=== PATIENT | female | born 1960 | race Caucasian/White ===

== ENCOUNTER → 2017-12-26 | Outpatient (CLI) | payer BC | END | disposition home or self-care (01) | LOC: KCIC MRI 14:34 | DX: M48.061 Spinal stenosis, lumbar region without neurogenic claudication (principal); M47.896 Other spondylosis, lumbar region | CPT/HCPCS: 72148 ==

== ENCOUNTER → 2018-02-03 | Outpatient (CLI) | payer BC ==
[2018-02-04 22:20] LABS: MRSA BY PCR Negative (Negative)
== END | disposition home or self-care (01) ==
LOC: SURGPAT 13:33
DX: Z01.818 Encounter for other preprocedural examination (principal); I10 Essential (primary) hypertension; R94.31 Abnormal electrocardiogram [ECG] [EKG]
CPT/HCPCS: 36415; 87641; 93005

== ENCOUNTER 2018-02-07 08:50 | Day surgery (SDC) | payer BC ==
[~2018-02-07 08:50] MED LIST: LIDOCAINE 1% PF 2 ML VIAL. ID; ONDANSETRON PF 4 MG/2 ML VIAL. IV; TRANEXAMIC ACID 1,000 MG in IV NS 50ML -- 1ST BAG INJ; TRANEXAMIC ACID 1,000 MG in IV NS 50ML -- 2ND BAG INJ; ceFAZolin 2GM PREMIX 2 GM/50 ML BAG IV; fentaNYL PF VIAL 100 MCG/2 ML VIAL IV
[2018-02-07] MEDS: IV RINGERS,LACTATED 1000ML 1,000 ML IV (09:20)
[2018-02-07] MEDS ORDERED: PROPOFOL 20 ML IV (10:16)
[2018-02-07] MEDS ORDERED: ONDANSETRON PF 4 MG/2 ML VIAL. (10:17)
[2018-02-07] MEDS ORDERED: PHENYLEPHRINE in 0.9% NACL PF 1 MG/10 ML SYRINGE. IV (10:17)
[2018-02-07] MEDS ORDERED: LIDOCAINE 2% PF Vial for OR 5 ML VIAL. (10:17)
[2018-02-07] MEDS ORDERED: DEXAMETHASONE SOD PHOS 20 MG/5 ML VIAL. (10:17)
[2018-02-07] MEDS ORDERED: REMIFENTANIL 2 MG VIAL. IV (10:18)
[2018-02-07] MEDS ORDERED: PROPOFOL 50 ML IV (10:18)
[2018-02-07] MEDS ORDERED: MIDAZOLAM HCL/PF 2 MG/2 ML VIAL. (10:18)
[2018-02-07] MEDS ORDERED: ROCURONIUM 50 MG/5 ML VIAL. (10:18)
[2018-02-07] MEDS ORDERED: fentaNYL PF VIAL 100 MCG/2 ML VIAL (10:18)
[2018-02-07] MEDS ORDERED: GLYCOPYRROLATE 1 MG/5 ML VIAL. (11:36)
[2018-02-07] MEDS ORDERED: DESFLURANE > 120 MINUTES IH (11:36)
[2018-02-07] MEDS ORDERED: NEOSTIGMINE METHYLSULFATE 5 MG/5 ML SYRINGE. (11:37)
[2018-02-07] MEDS: BUPIVAC MPF-EPI 0.5%-1:200000 30 ML VIAL. INJ (11:42)
[2018-02-07] MEDS: THROMBIN TOPICAL 20,000 UNIT SPRAY.SYRN KIT TP (11:42)
[2018-02-07] MEDS: GELATIN SPONGE SIZE 100. (11:42)
[2018-02-07] MEDS: KETOROLAC 60 MG/2 ML INJ FOR OR. (11:42)
[2018-02-07] MEDS: BACITRACIN 50,000 UNIT in IV NORMAL SALINE 1000ML BAG 1,000 ML IRR (11:42)
[2018-02-07] MEDS: fentaNYL PF VIAL 100 MCG/2 ML VIAL IV ×2 (13:15→13:22)
[2018-02-07] MEDS: PROCHLORPERAZINE 10 MG/2 ML VIAL. IV (13:15)
[2018-02-07] MEDS ORDERED: HYDROcodone/APAP 7.5/325MG 1 TAB TABLET PO (13:45)
[2018-02-07] MEDS: MORPHINE SULFATE 2 MG/ML DISP.SYRIN. IV (14:05)
[2018-02-07] MEDS: METHOCARBAMOL 750 MG TABLET PO (14:22)
[2018-02-07] MEDS: HYDROcodone/APAP 7.5/325MG 1 TAB TABLET PO (14:22)
== END 2018-02-07 15:30 | disposition home or self-care (01) ==
LOC: SURG 08:50
DX: M51.16 Intervertebral disc disorders with radiculopathy, lumbar region (principal); J45.909 Unspecified asthma, uncomplicated; I10 Essential (primary) hypertension; G43.909 Migraine, unspecified, not intractable, without status migrainosus; Z90.710 Acquired absence of both cervix and uterus; Z98.890 Other specified postprocedural states; E78.00 Pure hypercholesterolemia, unspecified; M19.90 Unspecified osteoarthritis, unspecified site; F32.9 Major depressive disorder, single episode, unspecified; Z88.2 Allergy status to sulfonamides; Z88.8 Allergy status to other drugs, medicaments and biological substances
CPT/HCPCS: 63030; 76000; 88304; 88311; 97162-GP; 97530-GP; A7015; G8978-CJ-GP; G8979-CJ-GP; G8980-CJ-GP; J0690; J0780; J1100; J1885; J2001; J2250; J2270; J2370; J2405; J2704; J2710; J3010; J3490; J7030

== ENCOUNTER → 2021-09-19 | Outpatient (CLI) | payer BC ==
[2018-02-07 14:38] VITALS: BP 119/98
[~2021-09-19] MED LIST changes: +CHOL10003 PO; +DICL100G54 TP; +DOCU-109 PO; +ESTR1TAB76 PO; +EZET10TA20 PO; +HYDR-2145 PO; +HYDR-2765 PO; -LIDOCAINE 1% PF 2 ML VIAL. ID; +LISI20TA18 PO; +METH-38 PO; +METO25TA4 PO; +OMEP40CA7 PO; -ONDANSETRON PF 4 MG/2 ML VIAL. IV; +SUMA100T4 PO; -TRANEXAMIC ACID 1,000 MG in IV NS 50ML -- 1ST BAG INJ; -TRANEXAMIC ACID 1,000 MG in IV NS 50ML -- 2ND BAG INJ; -ceFAZolin 2GM PREMIX 2 GM/50 ML BAG IV; -fentaNYL PF VIAL 100 MCG/2 ML VIAL IV
--- NOTE | 2021-09-19 09:06 | KCIC ---
EXAM: ULTRASOUND ABDOMEN COMPLETE CLINICAL HISTORY: Abdominal pain COMPARISON: None available. TECHNIQUE: Ultrasound of the upper abdomen was performed. FINDINGS: The liver length measures 15.2 cm. Multiple echogenicities identified within the gallbladder likely g allstones with wall echo shadowing. The gallbladder wall thickness measures 1.8 mm. The common bile d uct is 3.4 mm in transverse dimension. The right kidney measures 10.1 x 5.4 x 4.1 cm. The left kidney measures 10.8 x 4.7 x 5.6 cm. The visualized pancreas, aorta, IVC within normal limits of dimension. The spleen measures 10 cm in length. Few echogenicities identified within the spleen likely splenic granulomas. IMPRESSION: 1. Cholelithiasis. Electronically signed by: Christopher Maldonado MD (09/19/2021 9:04 AM) [id number]
== END ==
LOC: KCIC US 07:56
PROVIDERS: ATTEND Internal Medicine
DX: K80.20 Calculus of gallbladder without cholecystitis without obstruction (principal)
CPT/HCPCS: 76700